=== PATIENT | female | born 1970 | race Hispanic/Latino ===

== ENCOUNTER 2016-12-22 11:43 | Emergency (ER) | payer OTHER ==
[~2016-12-22] VITALS: Ht 144.8 cm; Wt 80.0 kg
[~2016-12-22 11:43] MED LIST: SYNTHROID; ULTRAM50 MG OR
[2016-12-22] MEDS ORDERED: VALTREX1 GM PO (12:24)
[2016-12-22 12:29] VITALS: BP 142/70
== END 2016-12-22 12:34 | disposition home or self-care (01) | DRG 156 ==
LOC: ED 11:43
DX: B00.1 Herpesviral vesicular dermatitis (principal); F32.9 Major depressive disorder, single episode, unspecified; E03.9 Hypothyroidism, unspecified

== ENCOUNTER 2018-10-05 18:12 | Emergency (ER) | payer OTHER ==
[~2018-10-05] VITALS: Ht 152.4 cm; Wt 58.1 kg
[~2018-10-05 18:12] MED LIST changes: +VALTREX1 GM PO
[2018-10-05 19:45] VITALS: BP 129/84
== END 2018-10-05 20:15 | disposition home or self-care (01) ==
LOC: ED 18:12
DX: T17.228A Food in pharynx causing other injury, initial encounter (principal); I10 Essential (primary) hypertension; E03.9 Hypothyroidism, unspecified; E78.00 Pure hypercholesterolemia, unspecified; X58.XXXA Exposure to other specified factors, initial encounter

== ENCOUNTER 2019-11-21 | Emergency (ER) | payer SELFPAY ==
[~2019-11-21] MED LIST changes: +CITALOPRAM10 M1 PO; +OLANZAPINE5 MG PO; +[UNRECOGNIZED DRUG - OTHER]
[2019-11-21] MEDS ORDERED: CELEBREX100 M1 PO (02:14)
== END 2019-11-21 02:51 | disposition home or self-care (01) | DRG 554 ==
DX: M17.12 Unilateral primary osteoarthritis, left knee (principal); I10 Essential (primary) hypertension; E03.9 Hypothyroidism, unspecified